=== PATIENT | male | born 1945 | race Caucasian/White ===

== ENCOUNTER 2017-01-15 10:45 | Day surgery (SDC) | payer MEDICARE ==
[2017-01-15] VITALS (8 sets, daily range): BP systolic 123–144; BP diastolic 72–94; PULSE 63–83; RESP 16–20; TEMP 98.1–98.4; O2SAT 97
[~2017-01-15] VITALS: Ht 177.8 cm; Wt 93.2 kg
[2017-01-15] MEDS ORDERED: VANCOMYCIN 1000 MG/NS 250 ML IV SCH ×2 (11:15)
[2017-01-15] MEDS ORDERED: POVIDONE IODINE 5% (ANTISEPSIS KIT) 4 APPLICATIONS EACH NARE PRN (11:15)
[2017-01-15] MEDS ORDERED: INSULIN HUMAN REGULAR 1,000 UNITS/10 ML VIAL SQ PRN (11:15)
[2017-01-15] MEDS ORDERED: CHLORHEXIDINE GLUCONATE 2 % 1 PACK (2 CLOTHS) TOPICAL SCH (11:15)
[2017-01-15] MEDS ORDERED: SODIUM CHLORID 0.9% 500 ML IV PRN (11:15)
[2017-01-15] MEDS ORDERED: LACTATED RINGER'S 1000 ML IV PRN (11:15)
[2017-01-15] MEDS ORDERED: ceFAZolin 2 GM PREMIX 50 ML IV SCH (11:15)
[2017-01-15] MEDS ORDERED: CHLORHEXIDINE GLUCONATE 2 % 1 PACK (2 CLOTHS) TOPICAL PRN (11:15)
[2017-01-15] MEDS ORDERED: POVIDONE IODINE 5% (ANTISEPSIS KIT) 4 APPLICATIONS EACH NARE SCH (11:15)
[2017-01-15] MEDS ORDERED: METOPROLOL TARTRATE 25 MG TAB PO PRN (11:15)
[2017-01-15] MEDS ORDERED: POTA10CA PO (11:34)
[2017-01-15] MEDS ORDERED: CARV3.125 PO (11:34)
[2017-01-15] MEDS ORDERED: FURO20TA PO (11:34)
[2017-01-15] MEDS ORDERED: HYDR10TA23 PO (11:34)
[2017-01-15] MEDS ORDERED: RANO500 PO (11:34)
[2017-01-15] MEDS ORDERED: ATOR10TA15 PO (11:34)
[2017-01-15] MEDS ORDERED: XARE20TA PO (11:34)
[2017-01-15] MEDS ORDERED: OMEP20TA PO (11:34)
[2017-01-15] MEDS ORDERED: MUPIROCIN 2% OINT 1 APPLIC/GM SYR NASAL SCH (12:00)
[2017-01-15] MEDS: NS 1000 ML IV SCH (12:00)
[2017-01-15 12:39] LABS: AUTOMATED NEUTROPHIL # 5.1 TH/MM3 (1.8-7.7); BASOPHIL % 0.4 % (0.0-2.0); EOSINOPHIL # 0.1 TH/MM3 (0-0.4); EOSINOPHIL % 1.9 % (0.0-4.0); HEMATOCRIT 37.7 % (39.0-51.0); HEMO FLAGS DIFF FINAL; LYMPH % 18.6 % (9.0-44.0); LYMPHOCYTE # 1.4 TH/MM3 (1.0-4.8); MEAN CELL VOLUME 79.6 FL (80.0-100.0); MEAN CORPUSCULAR HEMOGLOBIN 26.2 PG (27.0-34.0); MEAN CORPUSCULAR HGB CONC 32.9 % (32.0-36.0); MONO % 9.1 % (0.0-8.0); PLATELET COUNT 261 TH/MM3 (150-450); RED BLOOD COUNT 4.73 MIL/MM3 (4.50-5.90); RED CELL DISTRIBUTION WIDTH 18.4 % (11.6-17.2); WHITE BLOOD COUNT 7.3 TH/MM3 (4.0-11.0)
[2017-01-15 12:46] LABS: APTT (PATIENT) 28.4 SEC (24.3-30.1); PROTHROMBIN TIME - PATIENT 11.4 SEC (9.8-11.6)
[2017-01-15] MEDS ORDERED: VANCOMYCIN HCL 1000 MG VIAL ONE (12:48)
[2017-01-15] MEDS ORDERED: ceFAZolin INJ 1,000 MG VIAL ONE (12:48)
[2017-01-15] MEDS ORDERED: SODIUM CHLOR 0.9% 250 ML INJ 250 ML ONE (12:48)
[2017-01-15] MEDS ORDERED: VANCOMYCIN 500 MG VIAL ONE (12:48)
[2017-01-15] MEDS ORDERED: LIDOCAINE HCL 2% 50 ML VIAL ONE (12:48)
[2017-01-15] MEDS ORDERED: PROPOFOL 200 MG/20 ML AMP OTHER ONE (12:50)
[2017-01-15 12:53] LABS: BICARBONATE 26.8 MEQ/L (21.0-32.0); POTASSIUM 4.2 MEQ/L (3.5-5.1)
--- NOTE | 2017-01-15 14:06 | CATHPROC ---
[employer] HIS Report Study Information Study Number Scheduled Start Study Start [id number] 01/15/2017 Jan 15 2017 12:15PM Referring Institution Admit Source Facility Department 1 Other [facility] - Rotary Filter Operator Physician and Clinical Staff Initial Raiza Jeff Anesthesiologist Assistant Certified Vasquez Mann,RT(R) Other Anesthesia, TRAY CHECKER Recorder Glory Patel,GEORGE Scrub Gina Echevarria RCIS Equipment Time Health Administrator Description Size Mfg Part Number Used/Scraped 13:19 MEDLINE INDUSTRIES PACK, CCL CUSTOM * [id number] Used 13:19 MEDLINE PACER MALDONADO, LIMB * [id number] Used 13:19 [employer] MEDICAL BLANKET,WARM AIR CCL * [id number] Used [id number] 12:19 [employer] MEDICAL CATHETER, JSN, QUAD FR 5 Used *[id number] 12:19 [employer] MEDICAL CATHETER, JSN, QUAD FR 5 Used *[id number] 12:19 [employer] MEDICAL CATHETER, JSN, QUAD FR 5 Used *[id number] 13:37 [employer] MEDICAL SHEATH, EPS, FR7 FAST CATH FR 7 [id number] Used 13:37 [employer] MEDICAL SHEATH, EPS, FR7 FAST CATH FR [address] [id number] Used 13:37 [employer] MEDICAL SHEATH, EPS, FR7 FAST CATH FR 7 [id number] Used Labs Hgb (g/dl) Hct (%) RBC (MIL/MM3) WBC (l/cumm) Platelets (thousands) 12.00-18.00 37.00-55.00 4.80-6.20 4.80-10.80 140.00-450.00 12.0 37 4.7 7.3 261 Glucose (mg/dl) BUN (mg/dl) Creatinine (mg/dl) BUN:Creatinine (1:x) 60.00-110.00 8.00-20.00 0.10-9.00 10.00-20.00 131 17 1.2 14.2 Na (meq/l) K (meq/l) 138.00-146.00 3.80-5.10 140 4.2 INR (PTT:PT) 0.50-2.00 1 Medication Medication Total Dose (Bolus/Oral) Medication Total Dosage/Unit 1% XYLOCAINE 20 mL Medications (Bolus/Oral) Medication Time Given Dosage/Unit Administered By Reason 1% XYLOCAINE 01/15/2017 1:39:53 PM 20 mL Raiza Gavin 20 mL 1% XYLOCAINE given in lab by Raiza Gavin in Right Groin via Subcutaneous. Ordered by Raiza Hernandez. Medication (Drip) Medication Time Given Dosage/Unit Concentration/Unit Diluent (ml) Solution ANCEF 01/15/2017 1:25:38 PM 1 g 1 g ANCEF given in lab by Anesthesia, TRAY CHECKER via Peripheral IV. Ordered by Raiza Gavin. Reason: As per physicians verbal order. VANCOMYCIN DRIP 01/15/2017 1:25:14 PM 1 g 1 g VANCOMYCIN DRIP given in lab by Anesthesia, TRAY CHECKER via Peripheral IV. Ordered by Raiza Gavin. R best: As per physicians verbal order. Initial Case Assessment Cardiovascular HR Rhythm NIBP Chest Pain 72 vp & general counsel 144/84 0 Edema Present Skin color Skin None Normal Warm Dry Circulatory - Right Pulses Dorsalis Pedis 1 Scale (0,1,2,3,4,d) Circulatory - Left Pulses Dorsalis Pedis 0 Scale (0,1,2,3,4,d) Chronological Log Time Study Chronological Log 12:50:00 Patient arrived via Bed. 12:50:05 Patient Name, D.O.B, / Armband Verified By R.N. 12:50:09 Consent signed by the physician and the patient and verified by the Rotary Filter Operator staff. 12:50:12 Pre-op and post- op instructions given; patient acknowledges understanding of instructions . 12:50:56 Verbal Stimulation=2 Physical Stimulation=2 Airway=2 Respiration=2 TOTAL=8. (0=absent, 1=li mited, 2=present) 12:52:05 Patient has been NPO for More than 6Hrs. 12:52:19 Skin Breakdown- Left leg generalized scabs. Left 2nd toe with cut "from nailclippers" as pe r pt. 12:52:59 Patient Warmer Placed on the Table. 12:53:00 Disposable Defibrillator Pads Placed On Patient. 12:53:01 Sadiq Prominences Protected 12:53:02 A # 20 IV was noted in the Antecubital (right). Grade = 0 0.9ns kvo 12:53:03 A # 22 IV was noted in the Wrist (left). Grade = 0 0.9ns kvo 12:53:04 History and physical on the chart or being dictated. 12:59:51 Table restraints applied according to hospital policy 13:00:11 Bilateral groins prepped with 2% chlorhexidine, and with a 3 min. waiting time. Assessment: Initial Case, HR=72 BPM, Rhythm=vp & general counsel, TIAS=718/84 mmhg, Chest Pain=0, Edema=None, Col or=Normal, Skin = Warm, Dry 13:05:50 Right Pulses: Jaren Ped=1 Left Pulses: Jaren Ped=0 doppler left pedal pulses 13:05:56 Anesthesia at bedside. Assumes care of patient. 13:08:55 2% CHLORHEXIDINE GLUCONATE WASH AND NASAL SWIPE DONE PRIOR TO PROCEDURE. 13:09:00 Bovie ground pad applied to: right thigh 13:14:30 St Yuriy rep present and checking device. VVI 50 set by rep per Dr Gavin. 13:19:17 MD paged 13:22:30 Reference ECG taken 1 g VANCOMYCIN DRIP given in lab by Anesthesia, TRAY CHECKER via Peripheral IV. Ordered by Madelyn Gavin. Reason: As 13:25:14 per physicians verbal order. 1 g ANCEF given in lab by Anesthesia, TRAY CHECKER via Peripheral IV. Ordered by Raiza Gavin. Reaso n: As per physicians 13:25:38 verbal order. 13:30:48 MD arrived. Time Out. Correct patient, procedure, procedure equipment, site and side verified with physicia n present. Time 13:39:01 concurred by MD, individual staff and TRAY CHECKER. Time Out #2 - Consents verified, patient in correct position, all results are labled and displa yed, safety precautions 13:39:25 taken, antibiotics administered. Time out concurred by MD, individual staff and TRAY CHECKER in procedu re 13:39:40 Case Start 13:39:53 20 mL 1% XYLOCAINE given in lab by Raiza Gavin in Right Groin via Subcutaneous. Ordered by Raiza Gavin. 13:41:11 Vascular access was obtained in the Fem Vein (right). 13:41:27 Vascular access was obtained in the Fem Vein (right). 13:41:29 Vascular access was obtained in the Fem Vein (right). 13:41:35 A SHEATH, EPS, FR7 FAST CATH FR 7 was advanced into the Fem Vein (right) using the Modified Seldinger technique. 13:41:41 A SHEATH, EPS, FR7 FAST CATH FR 7 was advanced into the Fem Vein (right) using the Modified Seldinger technique. 13:41:45 A SHEATH, EPS, FR7 FAST CATH FR 7 was advanced into the Fem Vein (right) using the Modified Seldinger technique. A CATHETER, JSN, QUAD FR 5 was advanced vis Fem Vein (right) and placed in the CS. Placement wa s visually 13:46:27 confirmed under fluoroscopy. A CATHETER, JSN, QUAD FR 5 was advanced vis Fem Vein (right) and placed in the HIS. Placement w as visually 13:46:37 confirmed under fluoroscopy. A CATHETER, JSN, QUAD FR 5 was advanced vis Fem Vein (right) and placed in the HRA. Placement w as visually 13:46:40 confirmed under fluoroscopy. 13:47:00 EPS in progress 14:01:38 EPS complete 14:01:55 His and HRA Catheters removed without difficulty 14:04:18 Case End 14:04:19 No case complications noted. 14:04:32 EP Procedure was performed. 14:05:[address] at this time. 0.9ns kvo conneted. 14:05:46 NOTE: This patient is undergoing an additional procedure while still in the Cardiac Cath L ab. End Study - Contrast Media Used In Study Contrast Total Opened (mL) Total Used (mL) Total Wasted (mL) Unspecified 0 0 0 End Study - Maximum Contrast Load Max Contrast Load (mL) 384.7 End Study - Radiation Exposure Fluoro Time (minutes) 3.6 End Study - Patient Disposition Complications Transferred To Interventional Outcome No Telemetry Bed successful
[2017-01-15] MEDS ORDERED: MIDAZOLAM HCL 2 MG/2 ML VIAL ONE (14:16)
--- NOTE | 2017-01-15 16:30 | CATHPROC ---
[employer] HIS Report Study Information Study Number Admission Scheduled Start Study Start [id number] 01/15/2017 01/15/2017 Jan 15 2017 12:11PM Referring Institution Admit Source Facility Department 1 Other [facility] - Nuclear Security Officer Physician and Clinical Staff Initial Raiza Jeff Drop Tester Gina Echevarria RCIS Other Anesthesia, TEAM COORDINATOR Recorder Glory Patel,RN Scrub Vasquez Mann,RT(R) Procedures Performed Procedure Location (Site) Vessel Name Lead Insertion Venogram Coronary Sinus Other Wire insertion Subclav. Vein (Lft Subclavian Vein Equipment Time Commanding Officer Homicide Squad Description Size Mfg Part Number Used/Scraped 12:15 [employer] MEDICAL DRAPE, RAYSHIELD X-RAY 12X17 12X17 D-100 Used 14:15 [employer] MEDICAL DRAPE, [place] X-RAY 12X17 12X17 D-100 Used 14:14 [employer] WIRE, ASAHI PROWATER 180CM 180CM 01081-00 Used WIRE, BALANCE MIDDLEWEIGHT 15:33 [employer] 190CM [id number] Used 190CM CATHETER, FR5 SWAN ERLIN 14:46 KHAN LAU FR 5 110F5 *[id number] Used MONITOR MPIS-502-10.0- INTRODUCER SET, 12:15 [employer]. FR 5 SC-NT-U-SST Used MICROPUNCTURE, STIFFENED *[id number] MPIS-502-10.0- INTRODUCER SET, 12:15 [employer]. FR 5 SC-NT-U-SST Used MICROPUNCTURE, STIFFENED *[id number] MPIS-502-10.0- INTRODUCER SET, 14:33 [employer]. FR 5 SC-NT-U-SST Used MICROPUNCTURE, STIFFENED *[id number] *[id number] *[id number] 12:15 [employer] DRAPE, IOBAN 2 6661EZ 26cm x 20cm [id number] Used 14:14 [employer] INDUSTRIES DRAPE, IOBAN 2 6661EZ 26cm x 20cm [id number] Used 12:15 [employer] SUTURE, STRIP PLUS 1/2" * [id number] Used 12:15 MEDLINE PACER ADHESIVE, MASTISOL 2/3CC 2/3CC 0523-48 Used 12:15 MEDLINE PACER MALDONADO, LIMB * 2530 Used 12:15 MEDLINE PACER PACK, PACER CUSTOM * [id number] Used 12:15 MEDLINE PACER PEN, SKIN DUAL W/ RULER * [id number] Used 14:47 [employer] MEDICAL WIRE, 3MMJ .035 180CM 180CM [id number] Used 14:32 [employer] PACER SAFE SHEATH, FR7, 13CM FR 7 [id number] Used PROBE COVER, STERILE 12:15 [employer] MEDICAL * [id number] Used ULTRASOUND W/ GEL 14:27 Needle Sponge Count 2 22 Used 14:27 Needle Sponge Count 25 1 Used 14:27 Needle Sponge Count 5 5 Used 15:28 [employer] OMNIPAQUE, 300 MG, 50ML 50ML [id number] Used SUTURE, 0 ETHIBOND [CT1] (CX21D), 8pk SUTURE, 2-0 VICRYL [CT1] (PYN161L) SUTURE, 2-0 VICRYL [CT1] (GDG482G) SUTURE, 4-0 VICRYL [PS2] (KFJ646P) 12:15 [employer] MEDICAL BLANKET,WARM AIR CCL * [id number] Used DEFIBRILLATOR, QUADRA 15:44 [facility] [facility] MEDICAL VVVED-DDDRV [id number] Used ASSURA LEAD, DURATA ACTIVE FIXATION 15:07 [employer] MEDICAL 65CM 7120Q/65CM Used 7120Q/65 LEAD, QUARTET QUADRIPOLAR 15:30 [facility] MEDICAL 86CM 1458Q-86CM Used 1458Q [facility] PAD, ELECTROSURGICAL 12:15 * [id number] Used SURGICAL GROUNDING ORANGE 14:11 V[employer] MEDTRONIC PLASMABLADE, PEAD 3.0S * [id number] Used 12:15 [employer] CHARLIE. ELECTRODE, PRO-PADZ BIPHASIC * [id number] Used Equipment Model, Serial, Lot Number and Expiration Data Description Model Number Serial Number Lot Number Expiration Date DEFIBRILLATOR, QUADRA ASSURA [id number] 12-07-2017 LEAD, DURATA ACTIVE FIXATION 7120q [id number] 02-06-2017 7120Q/65 LEAD, QUARTET QUADRIPOLAR 1458Q-86 [id number] 10-09-2019 1458Q History: Allergies Allergy Reaction NKDA History: Risk Factors Hypertension Yes Prior CABG Yes Diabetes Yes Medication Medication Total Dose (Bolus/Oral) Medication Total Dosage/Unit 2% XYLOCAINE 50 mL Medications (Bolus/Oral) Medication Time Given Dosage/Unit Administered By Reason 2% XYLOCAINE 01/15/2017 2:49:29 PM 50 mL Raiza Gavin 50 mL 2% XYLOCAINE given in lab by Raiza Gavin in Left upper chest via Subcutaneous. Ordered by Raiza Self. Final Case Assessment Cardiovascular HR Rhythm NIBP Chest Pain 60 evp and chief operating officer 110/66 0 Edema Present Skin color Skin None Normal Warm Dry Circulatory - Lower Extremities Color Lower Right Color Lower Left Normal Normal Neurological State Lethargic Moves all extremities Respiration - General Respiration Rate SpO2 (%) O2 (lpm) (B/min) 16 98 8 Chronological Log Time Study Chronological Log 14:06:20 NOTE: This patient is undergoing an additional procedure while still in the Cardiac Cath L ab. 14:06:41 Anesthesia remains at bedside. Assuming care of patient. 14:07:34 Reference ECG taken 14:08:15 [facility] Reps present 14:11:22 Left Upper Chest Prepped Times Two. First Sponge And Instrument Count Done by Vasquez Mann, RT(R). 14:26:43 Hypo's: 5, Sponges: 25, Bovie/scratch: 2 Sutures: 11, Blades: 2, Instruments: 26, Syveck Patches: 0 verified w MM Time Out. Correct patient, procedure, procedure equipment, site and side verified with physicia n present. Time 14:48:07 concurred by MD, individual staff and TEAM COORDINATOR. 14:48:35 Case Start 14:48:48 Ioban placed to left upper chest by . 50 mL 2% XYLOCAINE given in lab by Raiza Gavin in Left upper chest via Subcutaneous. Ordere d by Leslye 14:49:29 Raiza. 14:50:30 Surgical Incision Made. 14:51:01 A pocket was created at the L Upper Chest. 14:57:28 A device was explanted. 15:01:16 1 vanco saturated raytec in pocket. 15:02:38 Vascular access was obtained in the Subclav. Vein (t. Micropuncture kit 15:03:58 Wire inserted 15:06:30 The previous wire was exchanged for a WIRE, 3MMJ .035 180CM 180CM. A SAFE SHEATH, FR7, 13CM FR 7 was exchanged in the Subclav. Vein (Lft. This was necessary in or mehnaz for catheter 15:08:34 support. 15:09:05 A LEAD, DURATA ACTIVE FIXATION 7120Q/65 65CM was inserted and positioned in the RV. 15:14:46 Lead placement verified under fluoroscopy 15:14:51 The RV lead impedance and threshold being tested. 15:16:57 The RV lead was sutured to the fascia. 15:20:[address] [facility] Sheath going in over 0.035 wire. A MPA-2 INFINITI CATHETER FR 5 was advanced over a wire. OMNIPAQUE, 300 MG, 50ML 50ML was used for 15:26:23 injections. 15:27:35 The Coronary Sinus was manually injected with 10 cc's of contrast. OMNIPAQUE, 300 MG, 50ML 50ML used. 15:29:29 Wire removed 15:31:40 A WIRE, BALANCE MIDDLEWEIGHT 190CM 190CM was inserted via Subclav. Vein (Lft. 15:31:49 A LEAD, QUARTET QUADRIPOLAR 1458Q 86CM was inserted and positioned in the CS/LV. 15:34:21 Lead placement verified under fluoroscopy 15:34:28 The CS/LV lead impedance and threshold is being tested. 15:36:39 BMW Wire removed 15:43:38 The CS/LV lead was sutured to the fascia. 15:45:23 Antibiotic sponges removed from the surgical pocket. 15:46:38 A DEFIBRILLATOR, QUADRA ASSURA VVVED-DDDRV was connected and placed in the pocket. 15:46:51 The old RV lead was capped. 15:49:59 Pocket flushed with antibiotic solution 15:51:01 DOCU called. Spoke to Gisselle 15:51:11 Bedside Report will be given. Second Sponge And Instrument Count Done by Vasquez Mann RT(R). 15:54:36 Hypo's: 5, Sponges: 25, Bovie/scratch: 2 Sutures: 11, Blades: 2, Instruments: ~INSTRU~, Syveck Patches: ~SYVECK PATCH~ verified w DC 16:00:12 CS Quad Catheter was removed under fluoro 16:02:21 The DFT was Success at 20 Joules, 38 Ohms lead impedance and 3.5 ms charge time. 16:20:20 The pocket was closed. Final Sponge And Instrument Count Done by Johnathan, Vasquez, RT(R). 16:22:32 Hypo's: 5, Sponges: 25, Bovie/scratch: 2 Sutures: 11, Blades: 2, Instruments: 26, Syveck Patches: 0 verified w MM 16:23:21 Steri-strips and a sterile dressing applied to site. 16:23:40 Sheath(s) left in place, will be removed in Holding Area 16:23:57 Sterile dressing applied to R Fem site 16:24:20 Case End 16:24:21 No case complications noted. 16:24:23 Cine recording checked. 16:24:26 DOCU called. Spoke to Sayde. Pt needs sheaths pulled. 16:24:52 Defibrillator and ground pads removed. Skin intact. Assessment: Final Case, HR=60 BPM, Rhythm=evp and chief operating officer, VROK=647/66 mmhg, Chest Pain=0, Edema=None, [place] r=Normal, Skin = Warm, Dry Lower Right Extremities: Color=Normal 16:24:58 Lower Left Extremities: Color=Normal Neurological: State=Lethargic, SUNG Respiration: Resp=16 B/min, SpO2=98 %, O2=8 lpm 16:25:21 Sheaths removed; pressure applied to access sites. 16:26:31 Implantable Device card placed in patient's chart. 16:26:44 Implant Procedure was performed. 16:26:52 A Bivent ICD Implant . (Dual) 16:31:00 A sling was placed on the affected arm. 16:36:34 Sterile dressing applied to R Fem site 16:39:00 Patient moved to [facility] End Study - Contrast Media Used In Study Contrast Total Opened (mL) Total Used (mL) Total Wasted (mL) Omnipaque 50 10 40 End Study - Radiation Exposure Fluoro Time (minutes) 16.1 End Study - Sheaths Sheaths Pulled By Sheath Hold Time (min) Gina Echevarria 6 End Study - Patient Disposition Complications Transferred To Interventional Outcome No Telemetry Bed successful
[2017-01-15] MEDS ORDERED: FUROSEMIDE 20 MG TAB PO SCH (18:25)
[2017-01-15] MEDS ORDERED: TEMAZEPAM 15 MG CAP PO PRN (18:30)
[2017-01-15] MEDS ORDERED: ACETAMINOPHEN/CODEINE 300 MG/30 MG TAB PO PRN (18:30)
[2017-01-15] MEDS ORDERED: ACETAMINOPHEN 325 MG TAB PO PRN (18:30)
--- NOTE | 2017-01-15 18:44 | RADRPT ---
EXAM DATE/TIME: 01/15/2017 18:27 [place] COMPARISON: No previous studies available for comparison. INDICATIONS : Post op pacemaker. MEDICAL HISTORY : None. SURGICAL HISTORY : Pacemaker. ENCOUNTER: Initial ACUITY: 1 day PAIN SCORE: 0/10 LOCATION: Bilateral chest FINDINGS: Pacemaker device is noted with control pack over the left chest. There is no evidence of pneumothorax . Some linear density overlying right midlung may be external to the patient or minimal scarring/atel ectasis. Lungs otherwise clear. Cardiac contours are satisfactory with borderline heart size. No effu hussein is present. Sternotomy wires are noted. CONCLUSION: Satisfactory pacer appearance. Minimal opacity overlying right midlung Jim Ferrer MD on January 15, 2017 at 18:40 Board Certified Radiologist. This report was verified electronically.
[2017-01-15] MEDS ORDERED: ATORVASTATIN 10 MG TAB PO SCH (21:00)
[2017-01-15] MEDS: RANOLAZINE 500 MG EXTENDED RELEASE TAB PO SCH (21:55)
[2017-01-15] MEDS: ceFAZolin 2 GM PREMIX 50 ML IV SCH (21:55)
[2017-01-15] MEDS: CARVEDILOL 3.125 MG TAB PO SCH (21:55)
[2017-01-16] VITALS (16 sets, daily range): BP systolic 116–145; BP diastolic 65–72; PULSE 57–72; RESP 18–20; TEMP 98–98.1; O2SAT 97–99
[2017-01-16] MEDS: ceFAZolin 2 GM PREMIX 50 ML IV SCH ×2 (03:55→11:24)
--- NOTE | 2017-01-16 06:17 | EKG ---
Date Performed: 01/15/2017 Time Performed: 12:09:40 PTAGE: 71 years EKG: Sinus rhythm . V pacing Abnormal ECG NO PREVIOUS TRACING DOCTOR: Raiza Gavin Interpretating Date/Time 01/16/2017 06:17:12
[2017-01-16] MEDS: CARVEDILOL 3.125 MG TAB PO SCH (08:38)
[2017-01-16] MEDS: RANOLAZINE 500 MG EXTENDED RELEASE TAB PO SCH (08:38)
[2017-01-16] MEDS: hydrALAZINE HCL 10 MG TAB PO SCH ×2 (08:38→13:01)
[2017-01-16] MEDS ORDERED: PANTOPRAZOLE SOD 20 MG DELAYED RELEASE TAB PO SCH (09:00)
[2017-01-16] MEDS ORDERED: POTASSIUM CHLORIDE 10 MEQ CAP PO SCH (09:00)
[2017-01-16] MEDS: NS 1000 ML IV SCH (12:00)
--- NOTE | 2017-01-16 13:20 | MR ---
cc: MAK MASON DATE: 01/15/2017 INDICATION Congestive heart failure, class II, ischemic cardiomyopathy with severe left ventricular systolic dysfunction (EF 25%), coronary artery disease, history of remote coronary bypass, LBBB. PROCEDURE PERFORMED 1. Comprehensive electrophysiology study with right atrial and right ventricular pacing and sensing. 2. Coronary sinus cannulation with coronary sinus pacing and sensing. ACCESS SITE Right femoral vein. EQUIPMENT USED Quadripolar catheters x3. MEDICATIONS Sedation provided by Anesthesia. ESTIMATED BLOOD LOSS Less than 10 cc. COMPLICATIONS None. METHOD OF HEMOSTASIS Coronary sinus catheter and sheath left in place. RESULTS 1. Baseline intervals (milliseconds): Cycle length 856, CA 312, QRS 148, QT 434, QTC 469, AH 194, HV 74. 2. Right atrial programmed stimulation: Right atrial programmed stimulation was performed at baseline. AV Wenckebach 530 milliseconds. 3. Coronary sinus stimulation: Coronary sinus stimulation was performed at baseline. No atrial or ventricular arrhythmias were induced. 4. Right ventricular programmed stimulation: Right ventricular programmed stimulation was performed from the apex. RVRP: 600/280/310. 500/280/310. 400/240/270. Closest coupling intervals: 600/310/270. 500/310/220. 400/270/200. 600/310/300/190. 500/310/220/180. 400/270/230/180. 5. Arrhythmia induced: None. DIAGNOSIS 1. No inducible ventricular arrhythmias. 2. No inducible supraventricular arrhythmias. 3. HV interval 74 milliseconds. DISPOSITION Mr. Pandey will undergo placement of a dual-chamber biventricular defibrillator. MD MARCELA [place]/DARRIAN /2:06 PM /1:01 PM EMILY
[2017-01-16] MEDS ORDERED: VANCOMYCIN INJ 1,000 MG in SODIUM CHLOR 0.9% 250 ML INJ 250 ML IV ONE (14:00)
--- NOTE | 2017-01-16 16:11 | PD.CARD.PN ---
Subjective Subjective Remarks No CP or SOB Objective Medications Current Medications Medications (Trade) Dose Ordered Sig/Kenisha Route Start Time Stop Time Status Last Admin Sodium Chloride 1,000 ml @ 30 mls/hr Q24H IV 01/15/17 12:00 Lactated Ringer's 1,000 ml @ 30 mls/hr Q24H PRN IV 01/15/17 11:15 01/18/17 11:14 (NS 500 ml Inj) 500 ml @ 30 mls/hr [id number] PRN IV 01/15/17 11:15 01/18/17 11:14 (Restoril) 15 mg HS PRN PO 01/15/17 18:30 (Tylenol-Codeine #3) 2 tab Q4H PRN PO 01/15/17 18:30 (Tylenol) 650 mg Q4H PRN PO 01/15/17 18:30 (Lipitor) 10 mg HS PO 01/15/17 21:00 01/15/17 21:55 (Coreg) 3.125 mg BID PO 01/15/17 21:00 01/16/17 08:38 (Lasix) 20 mg BID@09,18 PO 01/15/17 18:25 01/16/17 08:38 (Apresoline) 10 mg TID PO 01/16/17 09:00 01/16/17 13:01 (KCl) 10 meq DAILY PO 01/16/17 09:00 01/16/17 08:38 (Ranexa) 500 mg BID PO 01/15/17 21:00 01/16/17 08:38 (Protonix) 20 mg DAILY PO 01/16/17 09:00 01/16/17 08:38 Vital Signs / I&O Vital Signs Date Time Temp Pulse Resp B/P Pulse Ox O2 Delivery O2 Flow Rate FiO2 01/16/17 15:00 98.0 64 20 135/72 99 01/16/17 15:00 60 01/16/17 14:00 63 01/16/17 13:00 60 01/16/17 12:00 62 01/16/17 11:00 98.0 65 20 129/70 98 01/16/17 11:00 64 01/16/17 10:00 68 01/16/17 09:00 63 01/16/17 08:00 67 01/16/17 07:00 66 01/16/17 07:00 98.1 65 20 145/71 98 01/16/17 06:00 64 01/16/17 05:00 68 01/16/17 04:00 98.0 57 18 117/68 97 01/16/17 04:00 62 01/16/17 03:00 68 01/16/17 02:00 72 01/16/17 01:00 72 01/16/17 00:00 98.0 66 18 116/65 97 01/16/17 00:00 68 01/15/17 23:00 72 01/15/17 22:00 78 01/15/17 21:00 70 01/15/17 20:00 98.4 72 18 123/72 97 01/15/17 20:00 68 01/15/17 19:00 70 01/15/17 18:00 65 01/15/17 17:21 65 01/15/17 17:21 98.4 63 20 129/82 97 I/O 01/15/17 01/15/17 01/15/17 01/16/17 01/16/17 01/16/17 07:00 15:00 23:00 07:00 15:00 23:00 Intake Total 240 ml 360 ml Balance 240 ml 360 ml Intake Oral 240 ml 360 ml # Voids 2 Physical Exam GENERAL: In NAD SKIN: Warm and dry. HEAD: Normocephalic. EYES: No scleral icterus. No injection or drainage. NECK: Supple, trachea midline. No JVD or lymphadenopathy. CARDIOVASCULAR: Regular rate and rhythm without murmurs, gallops, or rubs. RESPIRATORY: Breath sounds equal bilaterally. No accessory muscle use. GASTROINTESTINAL: Abdomen soft, non-tender, nondistended. MUSCULOSKELETAL: No cyanosis, or edema. Wound clean Laboratory Laboratory Tests Test 01/15/17 12:20 White Blood Count 7.3 TH/MM3 Red Blood Count 4.73 MIL/MM3 Hemoglobin 12.4 GM/DL Hematocrit 37.7 % Mean Corpuscular Volume 79.6 FL Mean Corpuscular Hemoglobin 26.2 PG Mean Corpuscular Hemoglobin 32.9 % Concent Red Cell Distribution Width 18.4 % Platelet Count 261 TH/MM3 Mean Platelet Volume 8.5 FL Neutrophils (%) (Auto) 70.0 % Lymphocytes (%) (Auto) 18.6 % Monocytes (%) (Auto) 9.1 % Eosinophils (%) (Auto) 1.9 % Basophils (%) (Auto) 0.4 % Neutrophils # (Auto) 5.1 TH/MM3 Lymphocytes # (Auto) 1.4 TH/MM3 Monocytes # (Auto) 0.7 TH/MM3 Eosinophils # (Auto) 0.1 TH/MM3 Basophils # (Auto) 0.0 TH/MM3 CBC Comment DIFF FINAL Differential Comment Prothrombin Time 11.4 SEC Prothromb Time International 1.0 RATIO Ratio Activated Partial 28.4 SEC Thromboplast Time Sodium Level 140 MEQ/L Potassium Level 4.2 MEQ/L Chloride Level 104 MEQ/L Carbon Dioxide Level 26.8 MEQ/L Anion Gap 9 MEQ/L Blood Urea Nitrogen 17 MG/DL Creatinine 1.26 MG/DL Estimat Glomerular Filtration 56 ML/MIN Rate Random Glucose 131 MG/DL Calcium Level 9.4 MG/DL Imaging Last Impressions Chest X-Ray 01/15/17 0000 Signed Impressions: Service Date/Time: Sunday, January 15, 2017 18:27 - CONCLUSION: Satisfactory pacer appearance. Minimal opacity overlying right midlung Jim Ferrer MD Assessment and Plan Problem List: (1) CHF (congestive heart failure) (2) Ischemic cardiomyopathy (3) CAD (coronary artery disease) (4) CAD (coronary artery disease) of artery bypass graft (5) ICD (implantable cardioverter-defibrillator) in place Assessment and Plan Normal device fx. Wound stable. DC home. Resume Xarelto tomorrow. F/u w me within 2 weeks. Raiza Gavin MD January 16, 2017 16:11
--- NOTE | 2017-01-17 09:58 | MR ---
cc: MAK MASON DATE 01/17/2017 INDICATIONS 1. Congestive heart failure, Class II, ischemic cardiomyopathy with severe left ventricular dysfunction with ejection fraction of 25% diagnosed over three months ago. 2. 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 3. Atrial lead in place for supraventricular tachycardia discrimination. 4. History of atrial fibrillation. PROCEDURE PERFORMED 1. Explantation of [employer] dual chamber pacemaker. 2. Placement of [employer] dual chamber biventricular defibrillator. 3. Testing of [employer] dual chamber biventricular defibrillator system. ACCESS SITE Left subclavian vein. EQUIPMENT USED 1. Generator: [employer] model [id number] dual chamber pacemaker biventricular defibrillator, serial number [id number]. 2. Right ventricular lead: [employer] model 7120Q-65 cm, screw-in right ventricular lead, serial number [id number]. 3. Left ventricular lead: [employer] model 1458Q-86 cm, quadripolar left coronary sinus lead, serial number [id number]. 4. Right atrial lead: [employer] model 168ATC - 46-cm screw-in atrial lead, serial number [id number], placed 11/01/2015. 5. Right ventricular lead was capped and left in place (placed 11/01/2015). MEDICATIONS Sedation administered by Anesthesia. BLOOD LOSS Less than 10 cc. COMPLICATIONS None. LEAD TESTING Right atrial lead: P-wave 2.0 millivolts, lead impedance 430 ohms. Pacing threshold 1.0 volts at 0.5 milliseconds. Right ventricular lead: R-wave 56 millivolts, lead impedance 590 ohms. Pacing threshold 0.75 volts at 0.5 milliseconds. Pacing at 10 volts, no diaphragmatic stimulation. Left ventricular lead: M2-M3 pacing threshold 0.50 at 0.5 milliseconds, no diaphragmatic stimulation. Ventricular fibrillation was induced on one occasional and terminated with 20 joule shock with an impedance of 37 ohms. DIAGNOSES 1. Successful upgrade of [employer] dual chamber pacemaker placing a [employer] dual chamber biventricular defibrillator. 2. Successful testing of [employer] dual chamber biventricular defibrillator system. 3. Defibrillation threshold of 20 joule or less. DISPOSITION Mr. Pandey will be monitored on telemetry after his procedure. He was given instructions concerning his wound care. We will continue perioperative antibiotics. I will see him back for a wound check and chronic device reprogramming in our office within two weeks. He will then see Dr. Gee, his primary medical director/head team physician, in his office for long-term device followup. MD MARCELA [place]/SSB /4:14 PM /9:30 AM [email or web address]
== END 2017-01-16 17:03 | disposition home or self-care (01) ==
LOC: HDOC 10:45 → HDIC 10:46 → HCIS 16:43 → HDOC 01-16 17:03
PROVIDERS: ATTEND Internal Medicine Interventional Cardiology
DX: Z45.02 Encounter for adjustment and management of automatic implantable cardiac defibrillator (principal); I13.0 Hypertensive heart and chronic kidney disease with heart failure and stage 1 through stage 4 chronic kidney disease, or unspecified chronic kidney disease; I50.9 Heart failure, unspecified; N18.9 Chronic kidney disease, unspecified; I25.5 Ischemic cardiomyopathy; I44.2 Atrioventricular block, complete; I50.1 Left ventricular failure, unspecified; E11.9 Type 2 diabetes mellitus without complications; I25.10 Atherosclerotic heart disease of native coronary artery without angina pectoris; I44.7 Left bundle-branch block, unspecified
CPT/HCPCS: 00530; 33225; 33249; 71010; 80048; 85025; 85610; 85730; 93005; 93619; C1730; C1769; C1882; C1895; C1900; J0690; J2250; J3010; J3370; J7050; 33224